=== PATIENT | female | born 1935 | race Caucasian/White ===

== ENCOUNTER 2017-01-15 11:02 | Emergency (ER) | payer MEDICARE, OTHER ==
[~2017-01-15 11:02] MED LIST: ALBUMINAR-12.5 GM/50 IV; ALDOMET250 MG PO; ALEVE220 M2 PO; AMBIEN5 M1 PO; APIDRA100 U/M SQ; APRESOLINE10 MG/TA1 PO; APRESOLINE50 MG PO; ARANESP25 MCG/1 M IJ; ASPIRIN325 M1 PO; ASPIRIN325 MG PO; AUGMENTIN 875-1 EAC1 PO; BYSTOLIC5 MG PO; CALCIUM 600 +1 EAC5 PO; CALCIUM 6001.5 G PO; CLARITIN10 M2 PO; CLARITIN10 M6 PO; COLACE100 M1 PO; COLCHICINE0.6 MG PO; COUMADIN1 M1 PO; CULTURELLE1 CAP PO; D3 DOTS2000 UNIT PO; DILTIAZEM 24HR240 M1 PO; DULCOLAX10 MG RC; ENALAPRIL MALEA20 MG PO; GLUCOVANCE 2.51 EACH PO; HYDRALAZINE PO; IPRAT-ALBUT 0.5-3 ML NEB; K-DUR10 MEQ PO; LANTUS SOL100 UNIT/1 SC; LANTUS SOLOSTAR3 ML SQ; LANTUS100 U/ML SC; LANTUS100 UNITS/ SC; LASIX20 MG PO; LASIX40 MG PO; LEVAQUIN500 MG PO; LEVAQUIN750 MG PO; LEVEMIR100 UNITS/ SC; LEVOTHROID50 MCG PO; LEVOXYL75 MC1 PO; LORTAB 5/5001 EA PO; MICRO-K10 MEQ PO; MILK OF MAGNESIA PO; MIRTAZAPINE7.5 M1 PO; MUCINEX600 M1 PO; MUCINEX600 MG PO; MULTIVITAMIN1 TAB PO; NEPRO CARB STE PO; NORCO 5/3251 TAB PO; NORVASC2.5 M1 PO; NORVASC2.5 MG PO; NORVASC5 M2 PO; NORVASC5 MG PO; ONE DAILY FOR1 EAC1 PO; PACERONE100 M1 PO; PRAVACHOL80 MG PO; PRAVASTATIN SOD80 MG PO; PREDNISONE10 M1 PO; PREDNISONE10 MG PO; PREDNISONE5 M1 PO; PROCRIT IM; PROCRIT10000 U/ML IV; PROTONIX20 M1 PO; PROTONIX40 M1 PO; PROTONIX40 M2 PO; RENVELA800 M1 PO; RENVELA800 MG PO; STOOL SOFTENER100 MG PO; SYMBICORT 160-4.6 GM IH; SYNTHROID50 MCG PO; TRADJENTA5 MG PO; TYLENOL EXTRA500 M1 PO; TYLENOL325 M1 PO; TYLENOL325 M2 PO; VASOTEC20 M2 PO; VASOTEC20 MG PO; VENTOLIN HFA18 G1 IH; VIT C PO; VITAMIN C PO; VITAMIN D250000 UNI1 PO; ZEMPLAR5 MCG/M1; ZOFRAN ODT4 MG PO; ZOFRAN ODT4 MG/UDTAB PO; ZOFRAN4 M1 PO; ZYRTEC10 M9 PO
[2017-01-15 12:33] LABS: BASO % 0.3 % (0-2); EOSINOPHIL ABSOLUTE COUNT 0.7 tho/cmm (0.0-0.7); HCT-HEMATOCRIT 43.5 % (34.0-49.0); HGB-HEMOGLOBIN 14.1 gm/dl (12.0-15.5); IMMATURE GRANULOCYTES ABSOLUTE 0.05 tho/cmm (0-0.03); IMMATURE GRANULOCYTES PERCENT 0.4 % (0-0.3); LYMPH % 2.9 % (20-45); LYMPH ABSOLUTE COUNT 0.4 tho/cmm (0.8-4.5); MCH (MEAN CORPUSCULAR HGB) 35.7 pg (28.0-32.0); MCHC MEAN CORPUSCULAR HGB CONC 32.4 % (32.0-36.0); MCV (MEAN CELL VOLUME) 110.1 fl (82.0-96.0); NEUTROPHIL ABSOLUTE COUNT 11.8 tho/cmm (1.6-8.0); NEUTROPHIL-AUTOMATED 11.8 tho/cmm (1.6-8.0); NEUTROPHILS % 84.4 % (40-80); PLATELET COUNT 210 tho/cmm (150-450); RED BLOOD COUNT 3.95 mil/cmm (4.00-5.20); RED CELL DISTRIBUTION WIDTH 16.9 % (12.4-16.4); WHITE BLOOD COUNT 13.9 tho/cmm (4.0-10.0)
[2017-01-15 12:45] LABS: ANION GAP 12 mmol/L (0-20); BLOOD UREA NITROGEN 30 mg/dl (6-24); CALCIUM 9.9 mg/dl (8.5-10.5); CARBON DIOXIDE-VENOUS 31 mmol/L (22-32); CHLORIDE 91 mmol/l (96-110); CREATININE 5.99 mg/dl (0.50-1.10); POTASSIUM 5.2 mmol/L (3.7-5.1); SODIUM 129 mmol/L (135-145); eGFR VALUE FOR BLACK 7 mL/Min
[2017-01-15 12:49] LABS: GLUCOSE 62 mg/dL (70-110)
[2017-01-15] MEDS ORDERED: DOMEBORO PACKE1 EACH TP (13:05)
[2017-01-15] MEDS ORDERED: NEURONTIN100 M1 PO (13:06)
[2017-01-15] MEDS ORDERED: PLAVIX75 M1 PO (13:06)
[2017-01-15] MEDS ORDERED: NOVOLOG100 UNITS/ SC (13:07)
[2017-01-15] MEDS ORDERED: VALTREX500 M1 PO (13:07)
[2017-01-16] MEDS ORDERED: AMIODARONE HCL200 M1 PO (11:25)
[2017-01-16] MEDS ORDERED: CALCIUM ACETAT667 M2 PO (11:25)
[2017-01-16] MEDS ORDERED: MUCINEX600 M1 PO (11:26)
[2017-01-16] MEDS ORDERED: PLAVIX75 M1 PO (11:26)
[2017-01-16] MEDS ORDERED: REMERON15 M1 PO (11:26)
[2017-01-16] MEDS ORDERED: NEURONTIN100 M1 PO (11:26)
[2017-01-16] MEDS ORDERED: SYNTHROID75 MC1 PO (11:26)
[2017-01-16] MEDS ORDERED: NOVOLOG FL100 UNIT/2 SC ×3 (11:27→11:28)
[2017-01-16] MEDS ORDERED: PROTONIX40 M2 PO (11:28)
[2017-01-16] MEDS ORDERED: VALTREX500 M1 PO (11:29)
[2017-01-16] MEDS ORDERED: PREDNISONE5 M1 PO (11:29)
[2017-01-16] MEDS ORDERED: COUGH DROPS1 EAC1 MM (11:30)
[2017-01-16] MEDS ORDERED: DOCUSATE SODIU100 M2 PO (11:30)
[2017-01-16] MEDS ORDERED: IPRAT-ALBUT 0.5-3 ML INH (11:30)
[2017-01-16] MEDS ORDERED: CLARITIN10 M6 PO (11:31)
[2017-01-16] MEDS ORDERED: GLUCOSE4 GM CH (11:31)
[2017-01-16] MEDS ORDERED: ONDANSETRON HCL4 M2 PO (11:32)
[2017-01-16] MEDS ORDERED: MAPAP500 M3 PO (11:32)
[2017-01-16] MEDS ORDERED: TUMS200 MG PO (11:33)
[2017-01-16] MEDS ORDERED: AMBIEN5 M1 PO (11:33)
[2017-05-14] MEDS ORDERED: LIQUITEARS15 M1 EACH EYE (01:21)
[2017-05-14] MEDS ORDERED: COUGH DROPS1 EACH MM (01:21)
== END 2017-01-15 15:07 ==
LOC: EDMED 11:02
PROVIDERS: Emergency Medicine
DX: E11.649 Type 2 diabetes mellitus with hypoglycemia without coma (principal); Z79.4 Long term (current) use of insulin

== ENCOUNTER 2017-01-16 11:14 | Inpatient (IN) | payer MEDICARE, OTHER ==
[~2017-01-16 11:14] MED LIST changes: +DOMEBORO PACKE1 EACH TP; +NEURONTIN100 M1 PO; +NOVOLOG100 UNITS/ SC; +PLAVIX75 M1 PO; +VALTREX500 M1 PO
[2017-01-16] MEDS ORDERED: AMIODARONE HCL200 M1 PO (11:25)
[2017-01-16] MEDS ORDERED: CALCIUM ACETAT667 M2 PO (11:25)
[2017-01-16] MEDS ORDERED: NEURONTIN100 M1 PO (11:26)
[2017-01-16] MEDS ORDERED: REMERON15 M1 PO (11:26)
[2017-01-16] MEDS ORDERED: MUCINEX600 M1 PO (11:26)
[2017-01-16] MEDS ORDERED: SYNTHROID75 MC1 PO (11:26)
[2017-01-16] MEDS ORDERED: PLAVIX75 M1 PO (11:26)
[2017-01-16] MEDS ORDERED: NOVOLOG FL100 UNIT/2 SC ×3 (11:27→11:28)
[2017-01-16] MEDS ORDERED: PROTONIX40 M2 PO (11:28)
[2017-01-16] MEDS ORDERED: VALTREX500 M1 PO (11:29)
[2017-01-16] MEDS ORDERED: PREDNISONE5 M1 PO (11:29)
[2017-01-16] MEDS ORDERED: DOCUSATE SODIU100 M2 PO (11:30)
[2017-01-16] MEDS ORDERED: COUGH DROPS1 EAC1 MM (11:30)
[2017-01-16] MEDS ORDERED: IPRAT-ALBUT 0.5-3 ML INH (11:30)
[2017-01-16] MEDS ORDERED: GLUCOSE4 GM CH (11:31)
[2017-01-16] MEDS ORDERED: CLARITIN10 M6 PO (11:31)
[2017-01-16] MEDS ORDERED: MAPAP500 M3 PO (11:32)
[2017-01-16] MEDS ORDERED: ONDANSETRON HCL4 M2 PO (11:32)
[2017-01-16] MEDS ORDERED: TUMS200 MG PO (11:33)
[2017-01-16] MEDS ORDERED: AMBIEN5 M1 PO (11:33)
[2017-01-16 12:38] LABS: BASO % 0.3 % (0-2); EOS % 2.9 % (0-7); EOSINOPHIL ABSOLUTE COUNT 0.4 tho/cmm (0.0-0.7); HCT-HEMATOCRIT 33.5 % (34.0-49.0); IMMATURE GRANULOCYTES ABSOLUTE 0.05 tho/cmm (0-0.03); IMMATURE GRANULOCYTES PERCENT 0.4 % (0-0.3); LYMPH % 7.7 % (20-45); LYMPH ABSOLUTE COUNT 0.9 tho/cmm (0.8-4.5); MCH (MEAN CORPUSCULAR HGB) 35.6 pg (28.0-32.0); MCHC MEAN CORPUSCULAR HGB CONC 32.8 % (32.0-36.0); MCV (MEAN CELL VOLUME) 108.4 fl (82.0-96.0); MEAN PLATELET VOLUME 10.4 cmc (9.4-12.4); MONOCYTE ABSOLUTE COUNT 0.8 tho/cmm (0.0-1.2); NEUTROPHIL ABSOLUTE COUNT 9.7 tho/cmm (1.6-8.0); NEUTROPHIL-AUTOMATED 9.7 tho/cmm (1.6-8.0); NEUTROPHILS % 81.7 % (40-80); PLATELET COUNT 173 tho/cmm (150-450); RED BLOOD COUNT 3.09 mil/cmm (4.00-5.20); RED CELL DISTRIBUTION WIDTH 17.2 % (12.4-16.4); WHITE BLOOD COUNT 11.9 tho/cmm (4.0-10.0)
[2017-01-16 12:57] LABS: ALB/GLOB RATIO 0.9 (0.8-2.0); ALBUMIN 2.9 g/dl (3.5-5.0); ALKALINE PHOSPHATASE 95 U/L (33-138); ALT/SGPT 20 U/L (12-78); ANION GAP 20 mmol/L (0-20); AST/SGOT 32 U/L (10-40); BILIRUBIN,TOTAL 0.9 mg/dl (0-1.5); CALCIUM 8.3 mg/dl (8.5-10.5); CARBON DIOXIDE-VENOUS 24 mmol/L (22-32); CHLORIDE 95 mmol/l (96-110); CREATININE 7.45 mg/dl (0.50-1.10); PHOSPHOROUS 5.7 mg/dl (2.5-4.9); SODIUM 133 mmol/L (135-145); eGFR VALUE FOR BLACK 5 mL/Min
[2017-01-16 13:01] LABS: BLOOD UREA NITROGEN 46 mg/dl (6-24); GLUCOSE 51 mg/dL (70-110); POTASSIUM 5.9 mmol/L (3.7-5.1)
[2017-01-16 13:35] LABS: PROCALCITONIN 0.99 ng/ml (0.05-0.09)
[2017-01-16 15:45] LABS: PROTHROMBIN TIME 11.9 SECONDS (9.0-13.6)
[2017-01-17 05:25] LABS: BASO % 0.4 % (0-2); EOS % 4.4 % (0-7); EOSINOPHIL ABSOLUTE COUNT 0.5 tho/cmm (0.0-0.7); HCT-HEMATOCRIT 30.2 % (34.0-49.0); HGB-HEMOGLOBIN 9.9 gm/dl (12.0-15.5); IMMATURE GRANULOCYTES ABSOLUTE 0.05 tho/cmm (0-0.03); IMMATURE GRANULOCYTES PERCENT 0.5 % (0-0.3); LYMPH % 7.9 % (20-45); LYMPH ABSOLUTE COUNT 0.9 tho/cmm (0.8-4.5); MCH (MEAN CORPUSCULAR HGB) 34.7 pg (28.0-32.0); MCHC MEAN CORPUSCULAR HGB CONC 32.8 % (32.0-36.0); MEAN PLATELET VOLUME 10.4 cmc (9.4-12.4); MONO % 7.8 % (0-12); MONOCYTE ABSOLUTE COUNT 0.9 tho/cmm (0.0-1.2); NEUTROPHIL ABSOLUTE COUNT 8.7 tho/cmm (1.6-8.0); NEUTROPHIL-AUTOMATED 8.7 tho/cmm (1.6-8.0); PLATELET COUNT 179 tho/cmm (150-450); RED BLOOD COUNT 2.85 mil/cmm (4.00-5.20)
[2017-01-17 05:39] LABS: CHLORIDE 99 mmol/l (96-110); POTASSIUM 5.1 mmol/L (3.7-5.1); SODIUM 136 mmol/L (135-145)
[2017-01-17 06:04] LABS: ALB/GLOB RATIO 0.9 (0.8-2.0); ALBUMIN 2.7 g/dl (3.5-5.0); ALKALINE PHOSPHATASE 77 U/L (33-138); ALT/SGPT 21 U/L (12-78); ANION GAP 18 mmol/L (0-20); AST/SGOT 18 U/L (10-40); BILIRUBIN,TOTAL 0.7 mg/dl (0-1.5); BLOOD UREA NITROGEN 29 mg/dl (6-24); CALCIUM 7.8 mg/dl (8.5-10.5); CARBON DIOXIDE-VENOUS 24 mmol/L (22-32); MAGNESIUM 1.6 mg/dl (1.8-2.6); PHOSPHOROUS 5.2 mg/dl (2.5-4.9); TSH-THYROID STIMULATING HORM. 0.21 uIU/ml (0.40-3.80); eGFR VALUE FOR BLACK 9 mL/Min
[2017-01-17 06:18] LABS: CREATININE 4.89 mg/dl (0.50-1.10); GLUCOSE 109 mg/dL (70-110)
[2017-01-18 06:10] LABS: HGB-HEMOGLOBIN 9.2 gm/dl (12.0-15.5); PLATELET COUNT 138 tho/cmm (150-450)
[2017-01-18 06:17] LABS: CALCIUM 7.5 mg/dl (8.5-10.5); CARBON DIOXIDE-VENOUS 21 mmol/L (22-32); CHLORIDE 97 mmol/l (96-110); SODIUM 133 mmol/L (135-145)
[2017-01-18 06:38] LABS: ANION GAP 20 mmol/L (0-20); BLOOD UREA NITROGEN 48 mg/dl (6-24); CREATININE 6.13 mg/dl (0.50-1.10); GLUCOSE 193 mg/dL (70-110); MAGNESIUM 1.5 mg/dl (1.8-2.6); POTASSIUM 5.4 mmol/L (3.7-5.1); eGFR VALUE FOR BLACK 7 mL/Min
[2017-01-19 04:59] LABS: BLOOD UREA NITROGEN 27 mg/dl (6-24); CALCIUM 7.4 mg/dl (8.5-10.5); CARBON DIOXIDE-VENOUS 25 mmol/L (22-32); CHLORIDE 98 mmol/l (96-110); GLUCOSE 136 mg/dL (70-110); MAGNESIUM 1.4 mg/dl (1.8-2.6); SODIUM 134 mmol/L (135-145); eGFR VALUE FOR BLACK 11 mL/Min
[2017-01-19 05:07] LABS: ANION GAP 15 mmol/L (0-20); CREATININE 4.14 mg/dl (0.50-1.10); POTASSIUM 3.8 mmol/L (3.7-5.1)
[2017-01-19] MEDS ORDERED: AUGMENTIN 500-1 EAC2 PO (13:04)
[2017-01-19] MEDS ORDERED: LOVENOX30 MG/0.1 SC (13:07)
[2017-01-19] MEDS ORDERED: PLAVIX75 M1 PO (13:08)
[2017-01-19] MEDS ORDERED: CULTURELLE1 EAC1 PO (13:17)
[2017-01-19] MEDS ORDERED: BISCOLAX10 MG PR (13:17)
[2017-01-19] MEDS ORDERED: MIRALAX17 G2 PO (13:18)
[2017-01-19] MEDS ORDERED: NOVOLOG100 UNITS/ SC (13:21)
[2017-01-19] MEDS ORDERED: GLUCAGON HCL1 MG IM (13:24)
[2017-01-19] MEDS ORDERED: ANORO ELLIPTA1 EAC1 PO (13:26)
[2017-05-14] MEDS ORDERED: COUGH DROPS1 EACH MM (01:21)
[2017-05-14] MEDS ORDERED: LIQUITEARS15 M1 EACH EYE (01:21)
== END 2017-01-19 16:35 | DRG 308 ==
LOC: EDMED 11:14 → EMR2 14:06 → CCU 15:17 → PCUA 01-17 20:22
PROVIDERS: Emergency Medicine; ADMIT Hospitalist
PROC: 05H533Z Insertion of Infusion Device into Right Subclavian Vein, Percutaneous Approach (ICD-10-PCS; principal; 2017-01-16)
PROC: 5A1D60Z (ICD-10-PCS; 2017-01-16)
DX: I44.1 Atrioventricular block, second degree (principal); N18.6 End stage renal disease; J15.9 Unspecified bacterial pneumonia; E87.2 Acidosis; I12.0 Hypertensive chronic kidney disease with stage 5 chronic kidney disease or end stage renal disease; E11.22 Type 2 diabetes mellitus with diabetic chronic kidney disease; E11.649 Type 2 diabetes mellitus with hypoglycemia without coma; M34.9 Systemic sclerosis, unspecified; Z99.2 Dependence on renal dialysis; E87.5 Hyperkalemia; E83.42 Hypomagnesemia; Z79.52 Long term (current) use of systemic steroids; I73.9 Peripheral vascular disease, unspecified; I45.10 Unspecified right bundle-branch block; R00.1 Bradycardia, unspecified; Z79.4 Long term (current) use of insulin; E03.9 Hypothyroidism, unspecified; J44.9 Chronic obstructive pulmonary disease, unspecified; Z87.11 Personal history of peptic ulcer disease; Z87.891 Personal history of nicotine dependence; Z91.81 History of falling; I48.91 Unspecified atrial fibrillation; Z79.01 Long term (current) use of anticoagulants; Z87.898 Personal history of other specified conditions; R09.02 Hypoxemia; L97.529 Non-pressure chronic ulcer of other part of left foot with unspecified severity; E78.5 Hyperlipidemia, unspecified; Z79.02 Long term (current) use of antithrombotics/antiplatelets; Z95.820 Peripheral vascular angioplasty status with implants and grafts
CPT/HCPCS: C1751; J0461; J0885; J1265; J1650; J1720; J1815; J2543; J3370; J7030; J7512; P9045

== ENCOUNTER 2017-01-24 11:10 | Emergency (ER) | payer MEDICARE, OTHER ==
[~2017-01-24 11:10] MED LIST changes: +AMIODARONE HCL200 M1 PO; +ANORO ELLIPTA1 EAC1 PO; +AUGMENTIN 500-1 EAC2 PO; +BISCOLAX10 MG PR; +CALCIUM ACETAT667 M2 PO; +COUGH DROPS1 EAC1 MM; +CULTURELLE1 EAC1 PO; +DOCUSATE SODIU100 M2 PO; +GLUCAGON HCL1 MG IM; +GLUCOSE4 GM CH; +IPRAT-ALBUT 0.5-3 ML INH; +LOVENOX30 MG/0.1 SC; +MAPAP500 M3 PO; +MIRALAX17 G2 PO; +NOVOLOG FL100 UNIT/2 SC; +ONDANSETRON HCL4 M2 PO; +REMERON15 M1 PO; +SYNTHROID75 MC1 PO; +TUMS200 MG PO
[2017-01-24] MEDS ORDERED: PACERONE200 M1 PO (11:14)
[2017-01-24] MEDS ORDERED: ANORO ELLIPTA1 EAC1 INH (11:15)
[2017-01-24] MEDS ORDERED: AUGMENTIN 500-1 EAC2 PO (11:15)
[2017-01-24] MEDS ORDERED: COLACE100 M1 PO ×2 (11:16→11:23)
[2017-01-24] MEDS ORDERED: DIALYSIS (11:16)
[2017-01-24] MEDS ORDERED: SYNTHROID75 MC1 PO (11:17)
[2017-01-24] MEDS ORDERED: LOVENOX30 MG/0.1 SC (11:17)
[2017-01-24] MEDS ORDERED: PLAVIX75 M1 PO (11:18)
[2017-01-24] MEDS ORDERED: PREDNISONE5 M1 PO (11:18)
[2017-01-24] MEDS ORDERED: VALTREX500 M1 PO (11:19)
[2017-01-24] MEDS ORDERED: CALCIUM500 M4 PO (11:19)
[2017-01-24] MEDS ORDERED: PROTONIX40 M2 PO (11:20)
[2017-01-24] MEDS ORDERED: CULTURELLE1 EAC2 PO (11:20)
[2017-01-24] MEDS ORDERED: MUCINEX600 M1 PO (11:20)
[2017-01-24] MEDS ORDERED: NEURONTIN100 M1 PO (11:21)
[2017-01-24] MEDS ORDERED: CALCIUM ACETAT667 M2 PO (11:21)
[2017-01-24] MEDS ORDERED: NOVOLOG FL100 UNIT/2 SC (11:22)
[2017-01-24] MEDS ORDERED: TYLENOL EXTRA500 M1 PO (11:23)
[2017-01-24] MEDS ORDERED: DULCOLAX10 MG PR (11:24)
[2017-01-24] MEDS ORDERED: IPRAT-ALBUT 0.5-3 ML INH (11:24)
[2017-01-24] MEDS ORDERED: GLUCOSE4 GM PO (11:25)
[2017-01-24] MEDS ORDERED: HALLS3.2 M1 PO (11:27)
[2017-01-24] MEDS ORDERED: MIRALAX17 G2 PO (11:28)
[2017-01-24] MEDS ORDERED: MILK OF MAGNESIA PO (11:28)
[2017-01-24] MEDS ORDERED: ZOFRAN4 M2 PO (11:28)
[2017-01-24] MEDS ORDERED: AMBIEN5 M1 PO (11:29)
[2017-01-24 11:56] LABS: BASO % 0.7 % (0-2); BASO ABSOLUTE COUNT 0.1 tho/cmm (0.0-0.2); EOS % 2.9 % (0-7); EOSINOPHIL ABSOLUTE COUNT 0.3 tho/cmm (0.0-0.7); HGB-HEMOGLOBIN 12.9 gm/dl (12.0-15.5); IMMATURE GRANULOCYTES ABSOLUTE 0.16 tho/cmm (0-0.03); IMMATURE GRANULOCYTES PERCENT 1.7 % (0-0.3); LYMPH % 9.2 % (20-45); LYMPH ABSOLUTE COUNT 0.9 tho/cmm (0.8-4.5); MCH (MEAN CORPUSCULAR HGB) 35.8 pg (28.0-32.0); MCHC MEAN CORPUSCULAR HGB CONC 33.1 % (32.0-36.0); MCV (MEAN CELL VOLUME) 108.3 fl (82.0-96.0); MONO % 15.9 % (0-12); MONOCYTE ABSOLUTE COUNT 1.5 tho/cmm (0.0-1.2); NEUTROPHIL ABSOLUTE COUNT 6.6 tho/cmm (1.6-8.0); NEUTROPHIL-AUTOMATED 6.6 tho/cmm (1.6-8.0); NEUTROPHILS % 69.6 % (40-80); PLATELET COUNT 169 tho/cmm (150-450); RED CELL DISTRIBUTION WIDTH 17.6 % (12.4-16.4); WHITE BLOOD COUNT 9.5 tho/cmm (4.0-10.0)
[2017-01-24 12:12] LABS: ANION GAP 18 mmol/L (0-20); BLOOD UREA NITROGEN 39 mg/dl (6-24); CALCIUM 9.2 mg/dl (8.5-10.5); CARBON DIOXIDE-VENOUS 27 mmol/L (22-32); CHLORIDE 93 mmol/l (96-110); CREATININE 6.01 mg/dl (0.50-1.10); GLUCOSE 157 mg/dL (70-110); SODIUM 134 mmol/L (135-145); eGFR VALUE FOR BLACK 7 mL/Min
[2017-05-14] MEDS ORDERED: LIQUITEARS15 M1 EACH EYE (01:21)
[2017-05-14] MEDS ORDERED: COUGH DROPS1 EACH MM (01:21)
== END 2017-01-24 14:40 ==
LOC: EDMED 11:10
PROVIDERS: Emergency Medicine
DX: G47.36 Sleep related hypoventilation in conditions classified elsewhere (principal); R53.1 Weakness; E11.9 Type 2 diabetes mellitus without complications; I10 Essential (primary) hypertension; Z87.891 Personal history of nicotine dependence

== ENCOUNTER 2017-01-31 | Inpatient (IN) | payer MEDICARE, OTHER ==
[~2017-01-31] MED LIST changes: +ANORO ELLIPTA1 EAC1 INH; +CALCIUM500 M4 PO; +CULTURELLE1 EAC2 PO; +DIALYSIS; +DULCOLAX10 MG PR; +GLUCOSE4 GM PO; +HALLS3.2 M1 PO; +PACERONE200 M1 PO; +ZOFRAN4 M2 PO
[2017-02-04] MEDS ORDERED: AUGMENTIN 500-1 EAC2 PO (13:31)
[2017-05-14] MEDS ORDERED: LIQUITEARS15 M1 EACH EYE (01:21)
[2017-05-14] MEDS ORDERED: COUGH DROPS1 EACH MM (01:21)
== END 2017-02-04 14:06 | DRG 871 ==
DX: A41.9 Sepsis, unspecified organism (principal); J18.9 Pneumonia, unspecified organism; G93.41 Metabolic encephalopathy; N18.6 End stage renal disease; I13.11 Hypertensive heart and chronic kidney disease without heart failure, with stage 5 chronic kidney disease, or end stage renal disease; J44.0 Chronic obstructive pulmonary disease with (acute) lower respiratory infection; E11.22 Type 2 diabetes mellitus with diabetic chronic kidney disease; I44.1 Atrioventricular block, second degree; J44.1 Chronic obstructive pulmonary disease with (acute) exacerbation; L97.429 Non-pressure chronic ulcer of left heel and midfoot with unspecified severity; E11.621 Type 2 diabetes mellitus with foot ulcer; Z95.0 Presence of cardiac pacemaker; D64.9 Anemia, unspecified; I08.0 Rheumatic disorders of both mitral and aortic valves; Z99.2 Dependence on renal dialysis; Z87.11 Personal history of peptic ulcer disease; I25.5 Ischemic cardiomyopathy; E03.9 Hypothyroidism, unspecified; R00.1 Bradycardia, unspecified; E11.649 Type 2 diabetes mellitus with hypoglycemia without coma; Z79.02 Long term (current) use of antithrombotics/antiplatelets; I48.2 Chronic atrial fibrillation; I73.9 Peripheral vascular disease, unspecified; Z91.81 History of falling; Z79.4 Long term (current) use of insulin; Z79.52 Long term (current) use of systemic steroids; E87.6 Hypokalemia; D75.89 Other specified diseases of blood and blood-forming organs; E78.5 Hyperlipidemia, unspecified; I73.00 Raynaud's syndrome without gangrene; M19.90 Unspecified osteoarthritis, unspecified site; E11.65 Type 2 diabetes mellitus with hyperglycemia; M34.9 Systemic sclerosis, unspecified; R09.02 Hypoxemia

== ENCOUNTER 2017-06-12 10:08 | Inpatient (IN) | payer MEDICARE, OTHER ==
[~2017-06-12] VITALS: Ht 165.1 cm; Wt 63.9 kg
[~2017-06-12 10:08] MED LIST changes: +COUGH DROPS1 EACH MM; +LIQUITEARS15 M1 EACH EYE
[2017-06-12] MEDS ORDERED: PREDNISONE5 M1 PO (10:43)
[2017-06-12] MEDS ORDERED: PLAVIX75 M1 PO (10:43)
[2017-06-12] MEDS ORDERED: ANORO ELLIPTA1 EAC1 INH (10:43)
[2017-06-12] MEDS ORDERED: MUCINEX600 M1 PO (10:44)
[2017-06-12] MEDS ORDERED: ACIDOPHILUS1 EAC7 PO (10:44)
[2017-06-12] MEDS ORDERED: SYNTHROID75 MC1 PO (10:44)
[2017-06-12] MEDS ORDERED: VALTREX500 M1 PO (10:44)
[2017-06-12] MEDS ORDERED: NEURONTIN100 M1 PO (10:45)
[2017-06-12] MEDS ORDERED: PROTONIX40 M2 PO (10:45)
[2017-06-12] MEDS ORDERED: CALCIUM ACETAT667 M3 PO (10:45)
[2017-06-12] MEDS ORDERED: TYLENOL EXTRA500 M1 PO (10:46)
[2017-06-12] MEDS ORDERED: NOVOLOG FL100 UNIT/2 SC (10:46)
[2017-06-12] MEDS ORDERED: IPRAT-ALBUT 0.5-3 ML NEB (10:47)
[2017-06-12] MEDS ORDERED: COLACE100 M1 PO (10:47)
[2017-06-12] MEDS ORDERED: BISCOLAX10 MG PR (10:47)
[2017-06-12] MEDS ORDERED: CALCI-CHEW500 MG PO (10:47)
[2017-06-12] MEDS ORDERED: GLUCOSE4 GM CH (10:48)
[2017-06-12] MEDS ORDERED: NORCO 5-325 TA1 EACH PO (10:48)
[2017-06-12] MEDS ORDERED: HALLS3.2 M1 MM (10:49)
[2017-06-12] MEDS ORDERED: MILK OF MAGNESIA PO (10:49)
[2017-06-12] MEDS ORDERED: MIRALAX17 G2 PO (10:49)
[2017-06-12] MEDS ORDERED: LIQUITEARS15 M1 OP (10:49)
[2017-06-12] MEDS ORDERED: ZOFRAN4 M2 PO (10:50)
[2017-06-12] MEDS ORDERED: ULTRAM50 M1 PO ×2 (10:50)
[2017-06-12 11:23] LABS: BASO % 0.5 % (0-2); BASO ABSOLUTE COUNT 0.1 tho/cmm (0.0-0.2); EOS % 2.9 % (0-7); EOSINOPHIL ABSOLUTE COUNT 0.3 tho/cmm (0.0-0.7); HCT-HEMATOCRIT 26.6 % (34.0-49.0); IMMATURE GRANULOCYTES ABSOLUTE 0.22 tho/cmm (0-0.03); IMMATURE GRANULOCYTES PERCENT 2.2 % (0-0.3); LYMPH % 6.5 % (20-45); LYMPH ABSOLUTE COUNT 0.7 tho/cmm (0.8-4.5); MCH (MEAN CORPUSCULAR HGB) 35.3 pg (28.0-32.0); MCHC MEAN CORPUSCULAR HGB CONC 33.8 % (32.0-36.0); MCV (MEAN CELL VOLUME) 104.3 fl (82.0-96.0); MEAN PLATELET VOLUME 10.7 cmc (9.4-12.4); MONO % 6.5 % (0-12); MONOCYTE ABSOLUTE COUNT 0.7 tho/cmm (0.0-1.2); NEUTROPHIL ABSOLUTE COUNT 8.1 tho/cmm (1.6-8.0); NEUTROPHIL-AUTOMATED 8.1 tho/cmm (1.6-8.0); NEUTROPHILS % 81.4 % (40-80); PLATELET COUNT 232 tho/cmm (150-450); RED BLOOD COUNT 2.55 mil/cmm (4.00-5.20); RED CELL DISTRIBUTION WIDTH 15.5 % (12.4-16.4); WHITE BLOOD COUNT 9.9 tho/cmm (4.0-10.0)
[2017-06-12 11:44] LABS: ALB/GLOB RATIO 0.8 (0.8-2.0); ALBUMIN 3.3 g/dl (3.5-5.0); ALKALINE PHOSPHATASE 115 U/L (33-138); ANION GAP 18 mmol/L (0-20); AST/SGOT 10 U/L (10-40); BILIRUBIN,TOTAL 0.9 mg/dl (0-1.5); BLOOD UREA NITROGEN 62 mg/dl (6-24); CALCIUM 9.4 mg/dl (8.5-10.5); CARBON DIOXIDE-VENOUS 26 mmol/L (22-32); CHLORIDE 82 mmol/l (96-110); CREATININE 7.38 mg/dl (0.50-1.10); GLUCOSE 274 mg/dL (70-110); POTASSIUM 4.3 mmol/L (3.7-5.1); SODIUM 122 mmol/L (135-145); eGFR VALUE FOR BLACK 5 mL/Min
[2017-06-12 11:45] LABS: ALT/SGPT <10 U/L (12-78)
[2017-06-12 11:57] LABS: PROCALCITONIN 2.68 ng/ml (0.05-0.09)
[2017-06-12 13:52] LABS: ABG CO2 ARTERIAL 25 mmol/L (21-27); ARTERIAL BLD GAS O2 SATURATION 90 % (95-98); ARTERIAL BLOOD GAS PCO2 40 mmHg (32-45); ARTERIAL PO2 57 mmHg (70-100); BICARBONATE 24 mmol/L (21-28); BLOOD GAS BASE EXCESS -1 mM/L (-/+3); PH 7.39 Units (7.35-7.45)
[2017-06-12 14:41] LABS: TSH-THYROID STIMULATING HORM. 1.21 uIU/ml (0.40-3.80)
[2017-06-13 05:28] LABS: BASO % 0.8 % (0-2); BASO ABSOLUTE COUNT 0.1 tho/cmm (0.0-0.2); EOS % 2.8 % (0-7); EOSINOPHIL ABSOLUTE COUNT 0.2 tho/cmm (0.0-0.7); HCT-HEMATOCRIT 24.4 % (34.0-49.0); IMMATURE GRANULOCYTES ABSOLUTE 0.26 tho/cmm (0-0.03); LYMPH % 10.8 % (20-45); LYMPH ABSOLUTE COUNT 0.9 tho/cmm (0.8-4.5); MCH (MEAN CORPUSCULAR HGB) 34.3 pg (28.0-32.0); MCHC MEAN CORPUSCULAR HGB CONC 32.8 % (32.0-36.0); MCV (MEAN CELL VOLUME) 104.7 fl (82.0-96.0); MEAN PLATELET VOLUME 10.4 cmc (9.4-12.4); MONO % 10.5 % (0-12); MONOCYTE ABSOLUTE COUNT 0.9 tho/cmm (0.0-1.2); NEUTROPHIL ABSOLUTE COUNT 6.2 tho/cmm (1.6-8.0); NEUTROPHIL-AUTOMATED 6.2 tho/cmm (1.6-8.0); NEUTROPHILS % 72.1 % (40-80); PLATELET COUNT 220 tho/cmm (150-450); RED BLOOD COUNT 2.33 mil/cmm (4.00-5.20); RED CELL DISTRIBUTION WIDTH 15.6 % (12.4-16.4); WHITE BLOOD COUNT 8.6 tho/cmm (4.0-10.0)
[2017-06-13 05:40] LABS: CALCIUM 8.7 mg/dl (8.5-10.5); CARBON DIOXIDE-VENOUS 28 mmol/L (22-32); CHLORIDE 93 mmol/l (96-110); GLUCOSE 145 mg/dL (70-110); PHOSPHOROUS 1.8 mg/dl (2.5-4.9); SODIUM 129 mmol/L (135-145); eGFR VALUE FOR BLACK 10 mL/Min
[2017-06-13 05:42] LABS: ANION GAP 12 mmol/L (0-20); BLOOD UREA NITROGEN 27 mg/dl (6-24); CREATININE 4.45 mg/dl (0.50-1.10); POTASSIUM 3.9 mmol/L (3.7-5.1)
[2017-06-14 05:44] LABS: ANION GAP 12 mmol/L (0-20); BLOOD UREA NITROGEN 18 mg/dl (6-24); CALCIUM 8.4 mg/dl (8.5-10.5); CARBON DIOXIDE-VENOUS 24 mmol/L (22-32); CHLORIDE 99 mmol/l (96-110); CREATININE 3.41 mg/dl (0.50-1.10); GLUCOSE 182 mg/dL (70-110); MAGNESIUM 1.6 mg/dl (1.8-2.6); PHOSPHOROUS 1.9 mg/dl (2.5-4.9); SODIUM 131 mmol/L (135-145); eGFR VALUE FOR BLACK 14 mL/Min
[2017-06-15 06:48] LABS: BLOOD UREA NITROGEN 16 mg/dl (6-24); CALCIUM 8.7 mg/dl (8.5-10.5); CARBON DIOXIDE-VENOUS 23 mmol/L (22-32); CHLORIDE 98 mmol/l (96-110); CREATININE 3.11 mg/dl (0.50-1.10); GLUCOSE 184 mg/dL (70-110); SODIUM 134 mmol/L (135-145); eGFR VALUE FOR BLACK 15 mL/Min
[2017-06-15 06:50] LABS: ANION GAP 18 mmol/L (0-20); MAGNESIUM 1.9 mg/dl (1.8-2.6); POTASSIUM 4.5 mmol/L (3.7-5.1)
[2017-06-15 06:52] LABS: BASO % 0.8 % (0-2); BASO ABSOLUTE COUNT 0.1 tho/cmm (0.0-0.2); EOS % 5.8 % (0-7); EOSINOPHIL ABSOLUTE COUNT 0.6 tho/cmm (0.0-0.7); HCT-HEMATOCRIT 24.1 % (34.0-49.0); IMMATURE GRANULOCYTES ABSOLUTE 0.45 tho/cmm (0-0.03); IMMATURE GRANULOCYTES PERCENT 4.2 % (0-0.3); LYMPH % 11.4 % (20-45); LYMPH ABSOLUTE COUNT 1.2 tho/cmm (0.8-4.5); MCH (MEAN CORPUSCULAR HGB) 34.8 pg (28.0-32.0); MCHC MEAN CORPUSCULAR HGB CONC 33.2 % (32.0-36.0); MCV (MEAN CELL VOLUME) 104.8 fl (82.0-96.0); MEAN PLATELET VOLUME 11.6 cmc (9.4-12.4); MONO % 9.6 % (0-12); NEUTROPHIL ABSOLUTE COUNT 7.4 tho/cmm (1.6-8.0); NEUTROPHIL-AUTOMATED 7.4 tho/cmm (1.6-8.0); NEUTROPHILS % 68.2 % (40-80); RED CELL DISTRIBUTION WIDTH 16.3 % (12.4-16.4); WHITE BLOOD COUNT 10.8 tho/cmm (4.0-10.0)
[2017-06-15 08:19] LABS: PLATELET COUNT 195 tho/cmm (150-450)
[2017-06-15 08:20] LABS: WBC MORPHOLOGY VACUOLES
[2017-06-16 05:20] LABS: HGB-HEMOGLOBIN 7.4 gm/dl (12.0-15.5); INR 1.1 INR (0.9-1.1); MCV (MEAN CELL VOLUME) 103.8 fl (82.0-96.0); PROTHROMBIN TIME 12.4 SECONDS (9.0-13.6); RED CELL DISTRIBUTION WIDTH 16.1 % (12.4-16.4)
[2017-06-16 05:30] LABS: CALCIUM 8.1 mg/dl (8.5-10.5); CARBON DIOXIDE-VENOUS 27 mmol/L (22-32); CHLORIDE 90 mmol/l (96-110); GLUCOSE 240 mg/dL (70-110); PHOSPHOROUS 3.9 mg/dl (2.5-4.9); SODIUM 126 mmol/L (135-145); eGFR VALUE FOR BLACK 10 mL/Min
[2017-06-16 05:44] LABS: ANION GAP 13 mmol/L (0-20); BLOOD UREA NITROGEN 27 mg/dl (6-24); CREATININE 4.37 mg/dl (0.50-1.10); POTASSIUM 3.6 mmol/L (3.7-5.1)
[2017-06-16] MEDS ORDERED: COUMADIN2 M1 PO (15:40)
[2017-06-16] MEDS ORDERED: AMIODARONE HCL200 M1 PO (15:40)
== END 2017-06-16 15:15 | DRG 70 ==
LOC: EDMED → EDBD 10:08 → EMR2 13:45 → PCUA 13:45
PROVIDERS: Family Medicine; Internal Medicine Cardiovascular Disease; Internal Medicine Nephrology; ADMIT Internal Medicine
DX: G93.40 Encephalopathy, unspecified (principal); N18.6 End stage renal disease; I48.0 Paroxysmal atrial fibrillation; E87.1 Hypo-osmolality and hyponatremia; I48.91 Unspecified atrial fibrillation; E11.9 Type 2 diabetes mellitus without complications; E03.9 Hypothyroidism, unspecified
CPT/HCPCS: C8929; J0282; J0696; J0885; J1644; J1815; J3370; J3475; J7030; J7512